=== PATIENT | male | born 1970 | race African-American/Black ===

== ENCOUNTER 2020-03-09 08:50 | Observation (INO) ==
[2020-03-09 09:11] LABS: Basophils # 0.1 10*3/uL (0.0-0.2); Basophils % 0.7 % (0.0-0.8); Eosinophils # 0.4 10*3/uL (0.0-0.87); Eosinophils % 3.2 % (0.00-10.9); Hematocrit 23.5 VOL% (42.0-52.0); Hemoglobin 7.4 GM/DL (14.0-18.0); Immature Granulocytes % 0.8 %; Immature Granulocytes Absolute 0.09 #; Lymphocytes # 2.2 10*3/uL (1.4-4.0); Lymphocytes % 19.4 % (21.2-54.2); Mean Corpuscular HGB Conc 31.5 GM/DL (32-36); Mean Corpuscular Volume 97.9 FL (87-102); Mean Platelet Volume 10.9 FL (9.6-12.0); Monocytes % 6.6 % (1.7-12.7); Neutrophils % 69.3 % (38.7-73.9); Platelet Count 408 T/CUMM (130-400); Red Cell Distribution Width 15.3 % (9.3-17.3); White Blood Count 11.4 T/CUMM (4-12)
[2020-03-09 09:22] LABS: PT Patient Result 10.7 SECS (9.8-11.9); Partial Thromboplastin Time 28.2 SECS (23.9-33.8)
[2020-03-09 09:39] LABS: Alanine Aminotransferase 13 U/L (16-61); Alkaline Phosphatase 81 U/L (45-117); Aspartate Amino Transferase 20 U/L (0-37); Bilirubin,Total < 0.39 MG/DL (0.2-1.0); Blood Urea Nitrogen 44 MG/DL (7-18); Calcium 8.2 MG/DL (8.5-10.1); Estimated Glom Filtration Rate 7 ML/MIN; Glucose 128 MG/DL (74-106); Osmolality,Calculated 285.8 MOS/KG (273-304); Total Protein 7.7 G/DL (6.4-8.3)
[2020-03-09] MEDS ORDERED: LIDOCAINE 1%/EPI INJ 20 ML VIAL ONE (10:31)
[2020-03-09] MEDS ORDERED: HEPARIN 5,000 UNIT/1 ML VIAL ONE (10:31)
[2020-03-09] MEDS ORDERED: THROMBIN TOPICAL (RECOMBINANT) 5,000 UNIT VIAL TOP ONE (10:31)
[2020-03-09] MEDS ORDERED: BUPIVACAINE MPF 0.25% 30 ML VIAL ONE (10:31)
[2020-03-09] MEDS ORDERED: fentaNYL 100 MCG/2 ML VIAL ONE ×2 (11:24→11:54)
[2020-03-09] MEDS ORDERED: LABETALOL 20 MG/4 ML SYRINGE IV ONE (11:25)
[2020-03-09] MEDS ORDERED: VANCOMYCIN 1,000 MG VIAL ONE (11:30)
[2020-03-09] MEDS ORDERED: LIDOCAINE 2% 5 ML VIAL ONE (11:54)
[2020-03-09] MEDS ORDERED: SODIUM CHLORIDE 0.9% 500 ML IV ONE (11:54)
[2020-03-09] MEDS ORDERED: SEVOFLURANE 1 UNIT/15 MINUTE INH ONE (11:54)
[2020-03-09] MEDS ORDERED: propofoL 200 MG/20 ML VIAL IV ONE (11:54)
[2020-03-09] MEDS ORDERED: ACETAMINOPHEN 325 MG TABLET PO PRN (12:17)
[2020-03-09] MEDS ORDERED: MORPHINE 4 MG/1 ML VIAL IV PRN (12:17)
[2020-03-09] MEDS ORDERED: GLUCAGON 1 MG VIAL IM PRN (12:17)
[2020-03-09] MEDS ORDERED: DEXTROSE 50% 25 GM/50 ML VIAL IV PRN (12:17)
[2020-03-09] MEDS ORDERED: ONDANSETRON 4 MG/2 ML VIAL IV PRN ×2 (12:17→12:24)
[2020-03-09] MEDS ORDERED: SODIUM CHLORIDE 0.9% 1,000 ML IV PRN ×2 (12:19→14:58)
[2020-03-09] MEDS ORDERED: HYDROmorphone 2 MG/1 ML VIAL ONE (12:20)
[2020-03-09] MEDS ORDERED: ONDANSETRON 4 MG/2 ML VIAL ONE (12:21)
[2020-03-09] MEDS: HYDROmorphone 2 MG/1 ML VIAL IV PRN ×2 (12:24→12:36)
[2020-03-09] MEDS ORDERED: hydrALAZINE 20 MG/1 ML VIAL IV ONE ×2 (12:25→14:04)
[2020-03-09] MEDS: INSULIN REGULAR 100 UNIT/ML SUBCUT SCH ×2 (17:00→21:19)
[2020-03-09] MEDS ORDERED: CALCIUM CARBONATE CHEW 500 MG TABLET PO PRN (18:52)
[2020-03-10] MEDS ORDERED: hydrALAZINE 20 MG/1 ML VIAL IV PRN (01:30)
[2020-03-10 05:47] LABS: Basophils # 0.1 10*3/uL (0.0-0.2); Basophils % 0.7 % (0.0-0.8); Eosinophils # 0.4 10*3/uL (0.0-0.87); Eosinophils % 2.6 % (0.00-10.9); Hematocrit 25.8 VOL% (42.0-52.0); Hemoglobin 8.6 GM/DL (14.0-18.0); Immature Granulocytes % 0.9 %; Immature Granulocytes Absolute 0.14 #; Lymphocytes % 12.8 % (21.2-54.2); Mean Corpuscular HGB Conc 33.3 GM/DL (32-36); Mean Corpuscular Volume 92.8 FL (87-102); Monocytes % 6.6 % (1.7-12.7); Neutrophils % 76.4 % (38.7-73.9); Platelet Count 347 T/CUMM (130-400); Red Blood Count 2.78 MC/CUMM (3.8-5.5); Red Cell Distribution Width 16.2 % (9.3-17.3); White Blood Count 15.4 T/CUMM (4-12)
[2020-03-10 06:09] LABS: Platelet Estimate Normal
[2020-03-10 06:10] LABS: Anisocytosis 2+; Macrocytosis 1+
[2020-03-10 06:11] LABS: Calcium 8.4 MG/DL (8.5-10.1)
[2020-03-10] MEDS ORDERED: VANCOMYCIN INJ 1,000 MG in SODIUM CHLORIDE 0.9% 250 ML IV ONE (10:30)
[2020-03-10 11:13] VITALS: BP 173/64
== END 2020-03-10 14:22 | disposition home or self-care (01) ==
LOC: EDUNIT# → EDBD → N.ED 08:50 → N.3E 08:50 → N.ED 08:50 → N.3E 11:08 → N.ED 11:08 → N.3E 13:53
PROVIDERS: ADMIT Internal Medicine; ATTEND Internal Medicine
PROC: VAVDCFI (2020-03-09 11:25)

== ENCOUNTER 2021-01-19 05:24 | Inpatient (IN) ==
[2021-01-12 11:48] LABS: Basophils # 0.1 10*3/uL (0.0-0.2); Eosinophils # 0.4 10*3/uL (0.0-0.87); Eosinophils % 5.5 % (0.00-10.9); Hematocrit 30.2 VOL% (42.0-52.0); Hemoglobin 9.3 GM/DL (14.0-18.0); Immature Granulocytes % 0.7 %; Immature Granulocytes Absolute 0.05 #; Lymphocytes # 1.1 10*3/uL (1.4-4.0); Lymphocytes % 15.3 % (21.2-54.2); Mean Corpuscular HGB Conc 30.8 GM/DL (32-36); Mean Corpuscular Volume 93.2 FL (87-102); Monocytes % 10.1 % (1.7-12.7); Neutrophils % 67.4 % (38.7-73.9); Platelet Count 217 T/CUMM (130-400); Red Blood Count 3.24 MC/CUMM (3.8-5.5); Red Cell Distribution Width 16.9 % (9.3-17.3)
[2021-01-12 12:13] LABS: Albumin 3.5 G/DL (3.4-5.0); Bilirubin,Total 0.5 MG/DL (0.20-1.00); Calcium 8.3 MG/DL (8.5-10.1); Osmolality,Calculated 283.5 MOS/KG (273-304); Potassium 4.2 MMOL/L (3.5-5.1); Total Protein 7.1 G/DL (6.4-8.2)
[2021-01-19] MEDS ORDERED: cefTRIAXone 1,000 MG in SODIUM CHLORIDE 0.9% 100 ML IV ONE (06:00)
[2021-01-19] MEDS ORDERED: MIDAZOLAM 2 MG/2 ML VIAL ONE (06:28)
[2021-01-19] MEDS ORDERED: fentaNYL 100 MCG/2 ML VIAL ONE ×2 (06:28→08:03)
[2021-01-19] MEDS ORDERED: PHENYLEPHRINE 10 MG/1 ML VIAL IV ONE (06:29)
[2021-01-19] MEDS ORDERED: SODIUM CHLORIDE 0.9% 250 ML IV SCH (06:30)
[2021-01-19 06:33] LABS: Hematocrit 29.2 VOL% (42.0-52.0); Hemoglobin 9.1 GM/DL (14.0-18.0)
[2021-01-19] MEDS ORDERED: ALVIMOPAN 12 MG CAPSULE PO STA (06:52)
[2021-01-19] MEDS ORDERED: DEXAMETHASONE 4 MG/1 ML VIAL ONE (06:53)
[2021-01-19] MEDS ORDERED: LIDOCAINE 1% 5 ML VIAL ONE (06:53)
[2021-01-19] MEDS ORDERED: BUPIVACAINE MPF 0.25% 30 ML VIAL ONE (06:53)
[2021-01-19] MEDS ORDERED: SODIUM CHLORIDE 0.9% 0 ML IV ONE ×2 (07:12→07:50)
[2021-01-19] MEDS ORDERED: SODIUM CHLORIDE 0.9% 100 ML IV ONE (07:12)
[2021-01-19] MEDS ORDERED: SEVOFLURANE 1 UNIT/15 MINUTE INH ONE ×4 (07:12)
[2021-01-19] MEDS ORDERED: LIDOCAINE 2% 5 ML VIAL ONE (07:12)
[2021-01-19] MEDS ORDERED: propofoL 200 MG/20 ML VIAL IV ONE (07:12)
[2021-01-19] MEDS ORDERED: ONDANSETRON 4 MG/2 ML VIAL ONE (07:13)
[2021-01-19] MEDS ORDERED: ROCURONIUM 50 MG/5 ML VIAL IV ONE ×3 (07:13→09:56)
[2021-01-19] MEDS ORDERED: LIDOCAINE 2% TOP JELLY 20 ML VIAL INTRAURETH ONE (07:33)
[2021-01-19] MEDS ORDERED: SODIUM CHLORIDE 0.9% IV ONE (09:00)
[2021-01-19] MEDS ORDERED: DESMOPRESSIN IV ONE (09:00)
[2021-01-19] MEDS ORDERED: ePHEDrine 50 MG/ML VIAL ONE (09:14)
[2021-01-19] MEDS ORDERED: hydrALAZINE 20 MG/1 ML VIAL ONE (09:59)
[2021-01-19] MEDS ORDERED: SODIUM CHLORIDE 0.9% 250 ML IV ONE ×2 (10:03)
[2021-01-19] MEDS ORDERED: ROPIVACAINE 0.5% 30 ML VIAL ONE (10:17)
[2021-01-19] MEDS ORDERED: GLYCOPYRROLATE 0.4 MG/2 ML VIAL ONE (10:31)
[2021-01-19] MEDS ORDERED: NEOSTIGMINE 10 MG/10 ML VIAL ONE (10:31)
[2021-01-19] MEDS ORDERED: LACTULOSE 20 GM/30 ML UDCUP PO PRN (10:36)
[2021-01-19] MEDS ORDERED: ONDANSETRON 4 MG/2 ML VIAL IV PRN ×2 (10:36→11:02)
[2021-01-19] MEDS ORDERED: PROMETHAZINE 25 MG/1 ML VIAL IM PRN (10:36)
[2021-01-19] MEDS ORDERED: diphenhydrAMINE 50 MG/1 ML VIAL IV PRN ×2 (10:42→11:02)
[2021-01-19] MEDS ORDERED: HYDROmorphone 2 MG/1 ML VIAL IV PRN (11:02)
[2021-01-19] MEDS ORDERED: PROMETHAZINE INJ 25 MG in SODIUM CHLORIDE 0.9% 50 ML IV PRN (11:02)
[2021-01-19] MEDS: MEPERIDINE 25 MG/1 ML VIAL IV PRN ×2 (11:10→11:30)
[2021-01-19] MEDS: ACETAMINOPHEN 325 MG TABLET PO SCH ×3 (11:13→23:12)
[2021-01-19] MEDS: cefTRIAXone 1,000 MG in SODIUM CHLORIDE 0.9% 100 ML IV SCH (11:19)
[2021-01-19] MEDS ORDERED: LABETALOL 20 MG/4 ML SYRINGE IV ONE (11:22)
[2021-01-19 11:53] LABS: Basophils # 0.1 10*3/uL (0.0-0.2); Basophils % 0.4 % (0.0-0.8); Eosinophils # 0.1 10*3/uL (0.0-0.87); Eosinophils % 0.9 % (0.00-10.9); Hemoglobin 9.9 GM/DL (14.0-18.0); Immature Granulocytes % 0.8 %; Immature Granulocytes Absolute 0.11 #; Lymphocytes # 0.8 10*3/uL (1.4-4.0); Lymphocytes % 5.7 % (21.2-54.2); Mean Corpuscular HGB Conc 30.9 GM/DL (32-36); Mean Corpuscular Volume 92.2 FL (87-102); Mean Platelet Volume 12.4 FL (9.6-12.0); Monocytes % 1.4 % (1.7-12.7); Neutrophils % 90.8 % (38.7-73.9); Platelet Count 225 T/CUMM (130-400); Red Blood Count 3.47 MC/CUMM (3.8-5.5); Red Cell Distribution Width 17.2 % (9.3-17.3); White Blood Count 13.6 T/CUMM (4-12)
[2021-01-19 12:12] LABS: Hypochromasia 1+; Lymphocytes 6 % (20-55); Microcytosis 1+; Platelet Estimate Adequate; Segmented Neutrophils 92 % (50-85); Total Cells Counted 100
[2021-01-19 12:56] LABS: Calcium 8.5 MG/DL (8.5-10.1); Potassium 4.6 MMOL/L (3.5-5.1)
[2021-01-19] MEDS: hydrALAZINE 20 MG/1 ML VIAL IV PRN ×2 (13:50→18:30)
[2021-01-19] MEDS: HYDROmorphone 2 MG/1 ML VIAL IV PRN ×3 (14:49→23:14)
[2021-01-19] MEDS: DOCUSATE SODIUM 100 MG CAPSULE PO SCH (20:44)
[2021-01-19] MEDS: ALVIMOPAN 12 MG CAPSULE PO SCH (20:44)
[2021-01-19] MEDS: METOPROLOL TARTRATE 100 MG TABLET PO SCH (20:44)
[2021-01-20] MEDS: hydrALAZINE 20 MG/1 ML VIAL IV PRN (00:36)
[2021-01-20 04:32] LABS: Basophils % 0.3 % (0.0-0.8); Eosinophils % 0.1 % (0.00-10.9); Immature Granulocytes % 0.5 %; Immature Granulocytes Absolute 0.05 #; Lymphocytes # 0.9 10*3/uL (1.4-4.0); Lymphocytes % 8.5 % (21.2-54.2); Mean Corpuscular HGB Conc 31.5 GM/DL (32-36); Mean Corpuscular Volume 91.5 FL (87-102); Mean Platelet Volume 12.4 FL (9.6-12.0); Monocytes % 8.1 % (1.7-12.7); Neutrophils % 82.5 % (38.7-73.9); Red Cell Distribution Width 17.2 % (9.3-17.3); White Blood Count 10.4 T/CUMM (4-12)
[2021-01-20 04:44] LABS: Hemoglobin 8.5 GM/DL (14.0-18.0); Platelet Count 170 T/CUMM (130-400); Red Blood Count 2.95 MC/CUMM (3.8-5.5)
[2021-01-20 04:56] LABS: Hypochromasia 2+; Microcytosis 1+; Platelet Estimate Adequate
[2021-01-20 04:58] LABS: Calcium 8.1 MG/DL (8.5-10.1); Osmolality,Calculated 284.1 MOS/KG (273-304); Potassium 4.9 MMOL/L (3.5-5.1)
[2021-01-20 05:06] LABS: Risk Ratio 2.39
[2021-01-20] MEDS: ACETAMINOPHEN 325 MG TABLET PO SCH ×4 (05:30→23:12)
[2021-01-20] MEDS: ALVIMOPAN 12 MG CAPSULE PO SCH ×2 (08:44→20:51)
[2021-01-20] MEDS: DOCUSATE SODIUM 100 MG CAPSULE PO SCH ×2 (08:44→20:51)
[2021-01-20] MEDS: amLODIPine 10 MG TABLET PO SCH (08:45)
[2021-01-20] MEDS: ISOSORBIDE DINITRATE 20 MG TABLET PO SCH (08:45)
[2021-01-20] MEDS: METOPROLOL TARTRATE 100 MG TABLET PO SCH ×2 (08:45→20:51)
[2021-01-20] MEDS ORDERED: HEPARIN 10,000 UNIT/10 ML VIAL IV SCH (10:00)
[2021-01-20] MEDS: oxyCODONE/ACETAMINOPHEN 5-325 MG TABLET PO PRN ×2 (11:38→20:50)
[2021-01-20] MEDS: cefTRIAXone 1,000 MG in SODIUM CHLORIDE 0.9% 100 ML IV SCH (16:09)
[2021-01-21] MEDS: ACETAMINOPHEN 325 MG TABLET PO SCH ×4 (04:10→23:37)
[2021-01-21] MEDS: hydrALAZINE 20 MG/1 ML VIAL IV PRN ×2 (04:10→12:29)
[2021-01-21 06:25] LABS: Basophils # 0.1 10*3/uL (0.0-0.2); Basophils % 0.5 % (0.0-0.8); Eosinophils # 0.3 10*3/uL (0.0-0.87); Eosinophils % 2.9 % (0.00-10.9); Hematocrit 26.9 VOL% (42.0-52.0); Hemoglobin 8.7 GM/DL (14.0-18.0); Immature Granulocytes % 0.9 %; Lymphocytes # 0.6 10*3/uL (1.4-4.0); Mean Corpuscular HGB Conc 32.3 GM/DL (32-36); Mean Corpuscular Volume 90.9 FL (87-102); Mean Platelet Volume 12.3 FL (9.6-12.0); Monocytes % 6.8 % (1.7-12.7); Neutrophils % 83.9 % (38.7-73.9); Platelet Count 168 T/CUMM (130-400); Red Blood Count 2.96 MC/CUMM (3.8-5.5); Red Cell Distribution Width 17.1 % (9.3-17.3); White Blood Count 11.1 T/CUMM (4-12)
[2021-01-21 06:39] LABS: Calcium 8.8 MG/DL (8.5-10.1); Osmolality,Calculated 275.2 MOS/KG (273-304); Potassium 4.1 MMOL/L (3.5-5.1)
[2021-01-21] MEDS: ALVIMOPAN 12 MG CAPSULE PO SCH ×2 (08:57→20:47)
[2021-01-21] MEDS: amLODIPine 10 MG TABLET PO SCH (08:57)
[2021-01-21] MEDS: METOPROLOL TARTRATE 100 MG TABLET PO SCH ×2 (08:57→20:47)
[2021-01-21] MEDS: DOCUSATE SODIUM 100 MG CAPSULE PO SCH ×2 (08:57→20:47)
[2021-01-21] MEDS: ISOSORBIDE DINITRATE 20 MG TABLET PO SCH (08:57)
[2021-01-21] MEDS: oxyCODONE/ACETAMINOPHEN 5-325 MG TABLET PO PRN ×2 (09:01→20:48)
[2021-01-21] MEDS: cefTRIAXone 1,000 MG in SODIUM CHLORIDE 0.9% 100 ML IV SCH (11:11)
[2021-01-21] MEDS ORDERED: hydrALAZINE 20 MG/1 ML VIAL IV PRN (11:43)
[2021-01-21] MEDS: minoxidiL 2.5 MG TABLET PO SCH (20:47)
[2021-01-22] MEDS: oxyCODONE/ACETAMINOPHEN 5-325 MG TABLET PO PRN (00:33)
[2021-01-22 06:05] LABS: Calcium 8.9 MG/DL (8.5-10.1); Osmolality,Calculated 279.2 MOS/KG (273-304); Potassium 3.8 MMOL/L (3.5-5.1)
[2021-01-22] MEDS: ACETAMINOPHEN 325 MG TABLET PO SCH ×2 (06:29→13:31)
[2021-01-22] MEDS ORDERED: BISACODYL 10 MG SUPP RECTAL ONE (09:00)
[2021-01-22] MEDS: minoxidiL 2.5 MG TABLET PO SCH (09:49)
[2021-01-22] MEDS: METOPROLOL TARTRATE 100 MG TABLET PO SCH (09:49)
[2021-01-22] MEDS: amLODIPine 10 MG TABLET PO SCH (09:49)
[2021-01-22] MEDS: DOCUSATE SODIUM 100 MG CAPSULE PO SCH (09:49)
[2021-01-22] MEDS ORDERED: TUBERCULIN SKIN TEST 0.1 ML SYRINGE INTRADERM ONE (13:00)
[2021-01-22] MEDS: ISOSORBIDE DINITRATE 20 MG TABLET PO SCH (13:31)
[2021-01-22] MEDS: ALVIMOPAN 12 MG CAPSULE PO SCH (13:31)
[2021-01-22] MEDS: cefTRIAXone 1,000 MG in SODIUM CHLORIDE 0.9% 100 ML IV SCH (13:57)
[2021-01-22 16:16] VITALS: BP 135/84
== END 2021-01-22 15:55 | disposition swing bed (61) | DRG 656 ==
LOC: N.OR 05:24 → N.SDSINP 05:26 → N.4E 12:22 → N.5E 14:18
PROVIDERS: ADMIT Surgery; ATTEND Surgery

== ENCOUNTER 2021-08-03 05:47 | Inpatient (IN) ==
[2021-07-29 11:13] LABS: Basophils # 0.1 10*3/uL (0.0-0.2); Basophils % 0.7 % (0.0-0.8); Eosinophils # 0.4 10*3/uL (0.0-0.87); Eosinophils % 4.4 % (0.00-10.9); Hematocrit 29.5 VOL% (42.0-52.0); Hemoglobin 8.8 GM/DL (14.0-18.0); Immature Granulocytes % 1.2 %; Lymphocytes # 1.3 10*3/uL (1.4-4.0); Lymphocytes % 15.3 % (21.2-54.2); Mean Corpuscular HGB Conc 29.8 GM/DL (32-36); Mean Corpuscular Volume 102.8 FL (87-102); Mean Platelet Volume 12.1 FL (9.6-12.0); Monocytes # 0.8 10*3/uL (0.11-0.8); Monocytes % 9.6 % (1.7-12.7); NRBC # 0.04 10*3/uL; Neutrophils % 68.8 % (38.7-73.9); Platelet Count 315 T/CUMM (130-400); Red Blood Count 2.87 MC/CUMM (3.8-5.5); Red Cell Distribution Width 21.2 % (9.3-17.3); White Blood Count 8.4 T/CUMM (4-12)
[2021-07-29 11:50] LABS: Alanine Aminotransferase 16 U/L (16-61); Albumin 3.6 G/DL (3.4-5.0); Alkaline Phosphatase 69 U/L (45-117); Aspartate Amino Transferase 16 U/L (0-37); Bilirubin,Total < 0.39 MG/DL (0.20-1.00); Blood Urea Nitrogen 34 MG/DL (7-18); Carbon Dioxide 34 MMOL/L (21-32); Chloride 97 MMOL/L (98-107); Estimated Glom Filtration Rate 10 ML/MIN; Glucose 215 MG/DL (74-106); Osmolality,Calculated 294.3 MOS/KG (273-304); Potassium 5.2 MMOL/L (3.5-5.1); Sodium 141 MMOL/L (136-145); Total Protein 7.2 G/DL (6.4-8.2)
[2021-08-03] MEDS ORDERED: MIDAZOLAM 2 MG/2 ML VIAL ONE (06:27)
[2021-08-03] MEDS ORDERED: propofoL 200 MG/20 ML VIAL IV ONE (06:27)
[2021-08-03] MEDS ORDERED: ROCURONIUM 50 MG/5 ML VIAL IV ONE ×2 (06:27→09:32)
[2021-08-03] MEDS ORDERED: LIDOCAINE 2% 5 ML VIAL ONE (06:27)
[2021-08-03] MEDS ORDERED: ONDANSETRON 4 MG/2 ML VIAL ONE (06:27)
[2021-08-03] MEDS ORDERED: DESFLURANE 1 UNIT/15 MINUTE INH ONE (06:27)
[2021-08-03] MEDS ORDERED: fentaNYL 100 MCG/2 ML VIAL ONE ×2 (06:27→08:07)
[2021-08-03] MEDS ORDERED: LIDOCAINE 1% 5 ML VIAL ONE (06:30)
[2021-08-03] MEDS ORDERED: ROPIVACAINE 0.5% 30 ML VIAL ONE ×2 (06:30→06:39)
[2021-08-03 06:33] LABS: Hematocrit 30.3 VOL% (42.0-52.0); Hemoglobin 9.2 GM/DL (14.0-18.0)
[2021-08-03] MEDS ORDERED: GABAPENTIN 400 MG CAPSULE PO ONE (06:36)
[2021-08-03] MEDS ORDERED: FAMOTIDINE 20 MG TABLET PO ONE (06:36)
[2021-08-03] MEDS ORDERED: ACETAMINOPHEN 500 MG TABLET PO ONE (06:36)
[2021-08-03] MEDS ORDERED: DIAZEPAM 5 MG TABLET PO ONE (06:36)
[2021-08-03] MEDS ORDERED: FAMOTIDINE 20 MG TABLET ONE (06:40)
[2021-08-03] MEDS ORDERED: DIAZEPAM 5 MG TABLET ONE (06:40)
[2021-08-03] MEDS ORDERED: ACETAMINOPHEN 500 MG TABLET ONE (06:40)
[2021-08-03] MEDS ORDERED: GABAPENTIN 400 MG CAPSULE ONE (06:40)
[2021-08-03] MEDS ORDERED: ALVIMOPAN 12 MG CAPSULE PO ONE (07:00)
[2021-08-03] MEDS ORDERED: cefTRIAXone 1,000 MG in SODIUM CHLORIDE 0.9% 100 ML IV ONE (07:00)
[2021-08-03] MEDS ORDERED: SODIUM CHLORIDE 0.9% 250 ML IV SCH (07:00)
[2021-08-03] MEDS ORDERED: DESMOPRESSIN INJ 20 MCG in SODIUM CHLORIDE 0.9% 50 ML IV ONE (08:30)
[2021-08-03] MEDS ORDERED: GLYCOPYRROLATE 0.4 MG/2 ML VIAL ONE (09:38)
[2021-08-03] MEDS ORDERED: NEOSTIGMINE 10 MG/10 ML VIAL ONE (09:38)
[2021-08-03] MEDS ORDERED: SEVOFLURANE 1 UNIT/15 MINUTE INH ONE (09:39)
[2021-08-03] MEDS ORDERED: SODIUM CHLORIDE 0.9% 250 ML IV ONE (09:59)
[2021-08-03] MEDS ORDERED: SIMETHICONE CHEW 125 MG TABLET PO PRN (10:34)
[2021-08-03] MEDS ORDERED: ONDANSETRON 4 MG/2 ML VIAL IV PRN (10:34)
[2021-08-03] MEDS ORDERED: diphenhydrAMINE 50 MG/1 ML VIAL IV PRN (10:34)
[2021-08-03] MEDS ORDERED: LACTULOSE 20 GM/30 ML UDCUP PO PRN (10:34)
[2021-08-03] MEDS ORDERED: PROMETHAZINE 25 MG/1 ML VIAL IM PRN (10:34)
[2021-08-03] MEDS ORDERED: HYDROmorphone 1 MG/1 ML SYRINGE IV PRN (10:34)
[2021-08-03 11:22] LABS: Basophils # 0.1 10*3/uL (0.0-0.2); Basophils % 0.6 % (0.0-0.8); Eosinophils # 0.4 10*3/uL (0.0-0.87); Eosinophils % 3.6 % (0.00-10.9); Hematocrit 32.8 VOL% (42.0-52.0); Hemoglobin 9.9 GM/DL (14.0-18.0); Immature Granulocytes % 1.4 %; Immature Granulocytes Absolute 0.13 #; Lymphocytes % 10.2 % (21.2-54.2); Mean Corpuscular HGB Conc 30.2 GM/DL (32-36); Mean Corpuscular Volume 103.1 FL (87-102); Mean Platelet Volume 11.5 FL (9.6-12.0); Monocytes # 0.9 10*3/uL (0.11-0.8); Monocytes % 8.9 % (1.7-12.7); Neutrophils % 75.3 % (38.7-73.9); Platelet Count 262 T/CUMM (130-400); Red Blood Count 3.18 MC/CUMM (3.8-5.5); Red Cell Distribution Width 21.8 % (9.3-17.3); White Blood Count 9.6 T/CUMM (4-12)
[2021-08-03] MEDS: cefTRIAXone 1,000 MG in SODIUM CHLORIDE 0.9% 100 ML IV SCH (12:31)
[2021-08-03] MEDS: ACETAMINOPHEN 325 MG TABLET PO SCH ×2 (12:37→16:08)
[2021-08-03 13:22] LABS: Calcium 8.5 MG/DL (8.5-10.1); Osmolality,Calculated 285.5 MOS/KG (273-304)
[2021-08-03 13:26] LABS: Potassium 6.9 MMOL/L (3.5-5.1)
[2021-08-03] MEDS: ISOSORBIDE MONONITRATE 60 MG TABLET PO SCH (14:06)
[2021-08-03] MEDS: amLODIPine 10 MG TABLET PO SCH (14:06)
[2021-08-03] MEDS: SODIUM ZIRCONIUM CYCLOSILICATE 10 GM PACK PO SCH ×2 (14:26→20:29)
[2021-08-03] MEDS: SEVELAMER CARBONATE 800 MG TABLET PO SCH (16:08)
[2021-08-03] MEDS: hydrALAZINE 20 MG/1 ML VIAL IV PRN (16:10)
[2021-08-03] MEDS: DOCUSATE SODIUM 100 MG CAPSULE PO SCH (21:07)
[2021-08-03] MEDS: ALVIMOPAN 12 MG CAPSULE PO SCH (21:09)
[2021-08-03] MEDS: FAMOTIDINE 20 MG TABLET PO SCH (21:09)
[2021-08-03] MEDS: METOPROLOL TARTRATE 100 MG TABLET PO SCH (21:10)
[2021-08-04] MEDS: ACETAMINOPHEN 325 MG TABLET PO SCH ×5 (01:21→23:38)
[2021-08-04] MEDS: oxyCODONE/ACETAMINOPHEN 5-325 MG TABLET PO PRN ×2 (01:23→06:17)
[2021-08-04] MEDS ORDERED: amLODIPine 10 MG TABLET PO SCH (09:00)
[2021-08-04] MEDS ORDERED: ISOSORBIDE MONONITRATE 60 MG TABLET PO SCH (09:00)
[2021-08-04 09:33] LABS: Basophils % 0.4 % (0.0-0.8); Eosinophils # 0.4 10*3/uL (0.0-0.87); Eosinophils % 5.2 % (0.00-10.9); Hematocrit 28.9 VOL% (42.0-52.0); Hemoglobin 8.9 GM/DL (14.0-18.0); Immature Granulocytes % 0.4 %; Immature Granulocytes Absolute 0.03 #; Lymphocytes # 0.5 10*3/uL (1.4-4.0); Lymphocytes % 6.4 % (21.2-54.2); Mean Corpuscular HGB Conc 30.8 GM/DL (32-36); Mean Corpuscular Volume 101.8 FL (87-102); Mean Platelet Volume 10.3 FL (9.6-12.0); Monocytes # 0.4 10*3/uL (0.11-0.8); Monocytes % 4.6 % (1.7-12.7); Platelet Count 190 T/CUMM (130-400); Red Blood Count 2.84 MC/CUMM (3.8-5.5); Red Cell Distribution Width 21.7 % (9.3-17.3); White Blood Count 8.5 T/CUMM (4-12)
[2021-08-04] MEDS: amLODIPine 10 MG TABLET PO SCH (09:45)
[2021-08-04] MEDS: ISOSORBIDE MONONITRATE 60 MG TABLET PO SCH (09:45)
[2021-08-04] MEDS: METOPROLOL TARTRATE 100 MG TABLET PO SCH ×2 (09:45→20:33)
[2021-08-04 09:47] LABS: Calcium 8.3 MG/DL (8.5-10.1); Osmolality,Calculated 283.7 MOS/KG (273-304); Potassium 5.4 MMOL/L (3.5-5.1)
[2021-08-04] MEDS ORDERED: HEPARIN 10,000 UNIT/10 ML VIAL IV PRN (10:11)
[2021-08-04] MEDS: FAMOTIDINE 20 MG TABLET PO SCH ×2 (10:20→20:33)
[2021-08-04] MEDS: DOCUSATE SODIUM 100 MG CAPSULE PO SCH ×2 (10:20→20:33)
[2021-08-04] MEDS: SODIUM ZIRCONIUM CYCLOSILICATE 10 GM PACK PO SCH ×3 (10:20→20:33)
[2021-08-04] MEDS: SEVELAMER CARBONATE 800 MG TABLET PO SCH ×3 (10:20→16:05)
[2021-08-04] MEDS: ALVIMOPAN 12 MG CAPSULE PO SCH ×2 (10:20→20:33)
[2021-08-04] MEDS ORDERED: EPOETIN ALFA-EPBX 3,000 UNIT/ML VIAL IV PRN (14:03)
[2021-08-04] MEDS: hydrALAZINE 20 MG/1 ML VIAL IV PRN ×2 (14:28→23:39)
[2021-08-04] MEDS: cefTRIAXone 1,000 MG in SODIUM CHLORIDE 0.9% 100 ML IV SCH ×2 (14:32→16:15)
[2021-08-04] MEDS ORDERED: TUBERCULIN SKIN TEST 0.1 ML SYRINGE INTRADERM ONE (15:00)
[2021-08-05] MEDS: ACETAMINOPHEN 325 MG TABLET PO SCH ×3 (04:20→16:53)
[2021-08-05] MEDS: amLODIPine 10 MG TABLET PO SCH (06:13)
[2021-08-05 08:06] LABS: Basophils % 0.3 % (0.0-0.8); Eosinophils # 0.6 10*3/uL (0.0-0.87); Eosinophils % 5.6 % (0.00-10.9); Hematocrit 30.5 VOL% (42.0-52.0); Hemoglobin 9.4 GM/DL (14.0-18.0); Immature Granulocytes % 0.6 %; Immature Granulocytes Absolute 0.06 #; Lymphocytes # 0.6 10*3/uL (1.4-4.0); Lymphocytes % 5.9 % (21.2-54.2); Mean Corpuscular HGB Conc 30.8 GM/DL (32-36); Mean Corpuscular Volume 100.3 FL (87-102); Mean Platelet Volume 11.7 FL (9.6-12.0); Monocytes # 0.7 10*3/uL (0.11-0.8); Monocytes % 6.8 % (1.7-12.7); Neutrophils % 80.8 % (38.7-73.9); Platelet Count 189 T/CUMM (130-400); Red Blood Count 3.04 MC/CUMM (3.8-5.5); Red Cell Distribution Width 20.9 % (9.3-17.3); White Blood Count 9.9 T/CUMM (4-12)
[2021-08-05 08:33] LABS: Calcium 8.9 MG/DL (8.5-10.1); Osmolality,Calculated 278.2 MOS/KG (273-304); Potassium 5.1 MMOL/L (3.5-5.1)
[2021-08-05] MEDS: METOPROLOL TARTRATE 100 MG TABLET PO SCH ×2 (08:42→21:16)
[2021-08-05] MEDS: ISOSORBIDE MONONITRATE 60 MG TABLET PO SCH (08:42)
[2021-08-05] MEDS: SEVELAMER CARBONATE 800 MG TABLET PO SCH ×3 (08:42→16:51)
[2021-08-05] MEDS: DOCUSATE SODIUM 100 MG CAPSULE PO SCH ×2 (08:42→21:16)
[2021-08-05] MEDS: FAMOTIDINE 20 MG TABLET PO SCH ×2 (08:42→21:17)
[2021-08-05] MEDS: ALVIMOPAN 12 MG CAPSULE PO SCH ×2 (08:44→21:16)
[2021-08-05] MEDS: oxyCODONE/ACETAMINOPHEN 5-325 MG TABLET PO PRN ×3 (08:46→21:17)
[2021-08-05] MEDS: SODIUM ZIRCONIUM CYCLOSILICATE 10 GM PACK PO SCH (09:17)
[2021-08-05] MEDS: cefTRIAXone 1,000 MG in SODIUM CHLORIDE 0.9% 100 ML IV SCH (11:38)
[2021-08-06] MEDS: ACETAMINOPHEN 325 MG TABLET PO SCH ×4 (00:25→21:29)
[2021-08-06] MEDS: hydrALAZINE 20 MG/1 ML VIAL IV PRN ×4 (00:27→22:42)
[2021-08-06] MEDS: HEPARIN 5,000 UNIT/1 ML VIAL IV PRN ×3 (00:28→15:25)
[2021-08-06] MEDS: oxyCODONE/ACETAMINOPHEN 5-325 MG TABLET PO PRN ×4 (04:15→21:28)
[2021-08-06] MEDS: ALVIMOPAN 12 MG CAPSULE PO SCH ×2 (08:36→21:24)
[2021-08-06] MEDS: DOCUSATE SODIUM 100 MG CAPSULE PO SCH ×2 (08:36→21:24)
[2021-08-06] MEDS: amLODIPine 10 MG TABLET PO SCH (08:37)
[2021-08-06] MEDS: FAMOTIDINE 20 MG TABLET PO SCH ×2 (08:39→21:24)
[2021-08-06] MEDS: METOPROLOL TARTRATE 100 MG TABLET PO SCH ×2 (08:45→21:23)
[2021-08-06] MEDS: SEVELAMER CARBONATE 800 MG TABLET PO SCH ×3 (09:44→17:36)
[2021-08-06] MEDS: ISOSORBIDE MONONITRATE 60 MG TABLET PO SCH (09:44)
[2021-08-06 10:47] LABS: Basophils % 0.2 % (0.0-0.8); Eosinophils # 0.5 10*3/uL (0.0-0.87); Eosinophils % 5.8 % (0.00-10.9); Hematocrit 27.6 VOL% (42.0-52.0); Hemoglobin 8.7 GM/DL (14.0-18.0); Immature Granulocytes % 0.7 %; Immature Granulocytes Absolute 0.06 #; Lymphocytes # 0.4 10*3/uL (1.4-4.0); Lymphocytes % 4.3 % (21.2-54.2); Mean Corpuscular HGB Conc 31.5 GM/DL (32-36); Mean Corpuscular Volume 98.2 FL (87-102); Mean Platelet Volume 11.6 FL (9.6-12.0); Monocytes # 0.5 10*3/uL (0.11-0.8); Monocytes % 5.7 % (1.7-12.7); Neutrophils % 83.3 % (38.7-73.9); Platelet Count 168 T/CUMM (130-400); Red Blood Count 2.81 MC/CUMM (3.8-5.5); Red Cell Distribution Width 20.2 % (9.3-17.3); White Blood Count 9.1 T/CUMM (4-12)
[2021-08-06 10:52] LABS: Calcium 8.3 MG/DL (8.5-10.1); Osmolality,Calculated 281.1 MOS/KG (273-304); Potassium 4.4 MMOL/L (3.5-5.1)
[2021-08-06] MEDS ORDERED: HEPARIN 10,000 UNIT/10 ML VIAL IV PRN (11:36)
[2021-08-06 11:54] LABS: Lymphocytes 4 % (20-55); Total Cells Counted 100
[2021-08-06 11:55] LABS: Platelet Estimate Adequate
[2021-08-06] MEDS: cefTRIAXone 1,000 MG in SODIUM CHLORIDE 0.9% 100 ML IV SCH (14:25)
[2021-08-07] MEDS: ACETAMINOPHEN 325 MG TABLET PO SCH ×4 (01:41→20:51)
[2021-08-07] MEDS: FAMOTIDINE 20 MG TABLET PO SCH ×2 (09:14→20:51)
[2021-08-07] MEDS: SEVELAMER CARBONATE 800 MG TABLET PO SCH ×3 (09:14→16:51)
[2021-08-07] MEDS: ALVIMOPAN 12 MG CAPSULE PO SCH ×2 (09:15→20:51)
[2021-08-07] MEDS: METOPROLOL TARTRATE 100 MG TABLET PO SCH ×2 (09:15→20:52)
[2021-08-07] MEDS: amLODIPine 10 MG TABLET PO SCH (09:15)
[2021-08-07] MEDS: ISOSORBIDE MONONITRATE 60 MG TABLET PO SCH (09:15)
[2021-08-07] MEDS: DOCUSATE SODIUM 100 MG CAPSULE PO SCH ×2 (09:17→20:51)
[2021-08-07] MEDS: oxyCODONE/ACETAMINOPHEN 5-325 MG TABLET PO PRN (09:19)
[2021-08-07] MEDS ORDERED: hydroCHLOROthiazide 12.5 MG CAPSULE PO SCH (13:00)
[2021-08-07] MEDS: LOSARTAN 50 MG TABLET PO SCH ×2 (13:40→20:52)
[2021-08-07] MEDS: hydroCHLOROthiazide 12.5 MG CAPSULE PO SCH (13:40)
[2021-08-07] MEDS: cefTRIAXone 1,000 MG in SODIUM CHLORIDE 0.9% 100 ML IV SCH (13:41)
[2021-08-07] MEDS: PRAZOSIN 1 MG CAPSULE PO SCH (20:52)
[2021-08-08] MEDS: ACETAMINOPHEN 325 MG TABLET PO SCH ×4 (03:10→21:27)
[2021-08-08] MEDS: hydrALAZINE 20 MG/1 ML VIAL IV PRN ×2 (03:28→17:12)
[2021-08-08] MEDS: METOPROLOL TARTRATE 100 MG TABLET PO SCH ×2 (09:39→21:31)
[2021-08-08] MEDS: SEVELAMER CARBONATE 800 MG TABLET PO SCH ×3 (09:39→17:12)
[2021-08-08] MEDS: ALVIMOPAN 12 MG CAPSULE PO SCH ×2 (09:39→21:27)
[2021-08-08] MEDS: hydroCHLOROthiazide 12.5 MG CAPSULE PO SCH (09:40)
[2021-08-08] MEDS: PRAZOSIN 1 MG CAPSULE PO SCH ×2 (09:40→21:27)
[2021-08-08] MEDS: DOCUSATE SODIUM 100 MG CAPSULE PO SCH ×2 (09:40→21:27)
[2021-08-08] MEDS: ISOSORBIDE MONONITRATE 60 MG TABLET PO SCH (09:40)
[2021-08-08] MEDS: FAMOTIDINE 20 MG TABLET PO SCH ×2 (09:40→21:31)
[2021-08-08] MEDS: LOSARTAN 50 MG TABLET PO SCH ×2 (09:52→21:31)
[2021-08-08] MEDS ORDERED: HYDROmorphone 1 MG/1 ML SYRINGE IV PRN (14:28)
[2021-08-08] MEDS ORDERED: HYDROmorphone 1 MG/1 ML SYRINGE IV ONE (14:28)
[2021-08-08] MEDS: cefTRIAXone 1,000 MG in SODIUM CHLORIDE 0.9% 100 ML IV SCH (14:29)
[2021-08-09] MEDS: ACETAMINOPHEN 325 MG TABLET PO SCH ×3 (01:12→14:34)
[2021-08-09 08:05] VITALS: BP 174/102
[2021-08-09] MEDS: METOPROLOL TARTRATE 100 MG TABLET PO SCH (08:06)
[2021-08-09] MEDS: hydroCHLOROthiazide 12.5 MG CAPSULE PO SCH (08:06)
[2021-08-09] MEDS: ALVIMOPAN 12 MG CAPSULE PO SCH (08:06)
[2021-08-09] MEDS: DOCUSATE SODIUM 100 MG CAPSULE PO SCH (08:06)
[2021-08-09] MEDS: SEVELAMER CARBONATE 800 MG TABLET PO SCH ×2 (08:06→14:34)
[2021-08-09] MEDS: FAMOTIDINE 20 MG TABLET PO SCH (08:07)
[2021-08-09] MEDS: ISOSORBIDE MONONITRATE 60 MG TABLET PO SCH (08:07)
[2021-08-09] MEDS: PRAZOSIN 1 MG CAPSULE PO SCH (08:07)
[2021-08-09] MEDS: LOSARTAN 50 MG TABLET PO SCH (08:07)
[2021-08-09] MEDS: cefTRIAXone 1,000 MG in SODIUM CHLORIDE 0.9% 100 ML IV SCH (14:45)
== END 2021-08-09 15:59 | DRG 660 ==
LOC: N.OR 05:47 → N.SDSINP 05:49 → SUATTDRO 10:34 → N.3E 11:55
PROVIDERS: ADMIT Surgery; ATTEND Internal Medicine

== ENCOUNTER 2021-12-30 12:24 | Inpatient (IN) ==
[2021-12-30 16:27] LABS: Basophils # 0.1 10*3/uL (0.0-0.2); Basophils % 0.8 % (0.0-0.8); Eosinophils # 0.3 10*3/uL (0.0-0.87); Eosinophils % 4.8 % (0.00-10.9); Hematocrit 24.9 VOL% (42.0-52.0); Hemoglobin 7.6 GM/DL (14.0-18.0); Immature Granulocytes % 0.6 %; Immature Granulocytes Absolute 0.04 #; Lymphocytes # 1.2 10*3/uL (1.4-4.0); Lymphocytes % 19.1 % (21.2-54.2); Mean Corpuscular HGB Conc 30.5 GM/DL (32-36); Mean Corpuscular Volume 102.5 FL (87-102); Mean Platelet Volume 11.9 FL (9.6-12.0); Monocytes % 16.7 % (1.7-12.7); Platelet Count 189 T/CUMM (130-400); Red Blood Count 2.43 MC/CUMM (3.8-5.5); White Blood Count 6.2 T/CUMM (4-12)
[2021-12-30 16:37] LABS: INR 0.9; PT Patient Result 10.4 SECS (10.1-12.1); Partial Thromboplastin Time 42.1 SECS (23.7-32.9)
[2021-12-30 16:38] LABS: Albumin 2.9 G/DL (3.4-5.0); Bilirubin,Total 0.4 MG/DL (0.20-1.00); Calcium 8.1 MG/DL (8.5-10.1); Osmolality,Calculated 280.8 MOS/KG (273-304); Potassium 5.6 MMOL/L (3.5-5.1); Total Protein 7.3 G/DL (6.4-8.2)
[2021-12-30 16:55] LABS: Eosinophils 7 % (0-10); Lymphocytes 11 % (20-55); Total Cells Counted 100
[2021-12-30 16:56] LABS: Anisocytosis 1+; Microcytosis 1+
[2021-12-30 16:57] LABS: Macrocytosis 1+; Platelet Estimate Adequate
[2021-12-30] MEDS ORDERED: ONDANSETRON 4 MG/2 ML VIAL IV PRN (17:40)
[2021-12-30] MEDS ORDERED: DEXTROSE 10% 250 ML BAG IV PRN (17:40)
[2021-12-30] MEDS ORDERED: GLUCAGON 1 MG VIAL IM PRN (17:40)
[2021-12-30] MEDS ORDERED: SODIUM CHLORIDE 0.9% 1,000 ML IV PRN (17:43)
[2021-12-30] MEDS ORDERED: hydrALAZINE 20 MG/1 ML VIAL IV PRN (19:30)
[2021-12-30 19:47] LABS: % Iron Saturation 80.1 % (18-50)
[2021-12-30 20:19] LABS: Folate 5.84 NG/ML (5.38-24.0)
[2021-12-31] MEDS: ACETAMINOPHEN 325 MG TABLET PO PRN ×2 (01:27→14:29)
[2021-12-31] MEDS: LOSARTAN 50 MG TABLET PO SCH ×2 (08:27→20:42)
[2021-12-31] MEDS: SEVELAMER CARBONATE 800 MG TABLET PO SCH ×3 (08:28→16:54)
[2021-12-31] MEDS: ISOSORBIDE MONONITRATE 60 MG TABLET PO SCH (08:28)
[2021-12-31] MEDS: amLODIPine 10 MG TABLET PO SCH (08:28)
[2021-12-31] MEDS: CHOLECALCIFEROL 1,000 UNIT TABLET PO SCH (08:28)
[2021-12-31] MEDS: PRAZOSIN 1 MG CAPSULE PO SCH ×2 (08:36→20:42)
[2021-12-31] MEDS: METOPROLOL TARTRATE 100 MG TABLET PO SCH ×2 (08:37→20:42)
[2021-12-31] MEDS ORDERED: GENTAMICIN INJ 200 MG in SODIUM CHLORIDE 0.9% 100 ML IV ONE (08:52)
[2021-12-31] MEDS ORDERED: cefTRIAXone 2,000 MG in SODIUM CHLORIDE 0.9% 100 ML IV ONE (08:58)
[2021-12-31] MEDS: HEPARIN 5,000 UNIT/1 ML VIAL SUBCUT SCH ×2 (11:40→20:43)
[2022-01-01] MEDS: PRAZOSIN 1 MG CAPSULE PO SCH ×2 (08:38→20:21)
[2022-01-01] MEDS: ISOSORBIDE MONONITRATE 60 MG TABLET PO SCH (08:38)
[2022-01-01] MEDS: amLODIPine 10 MG TABLET PO SCH (08:38)
[2022-01-01] MEDS: CHOLECALCIFEROL 1,000 UNIT TABLET PO SCH (08:38)
[2022-01-01] MEDS: LOSARTAN 50 MG TABLET PO SCH ×2 (08:38→20:22)
[2022-01-01] MEDS: PANTOPRAZOLE 40 MG TABLET PO SCH (08:38)
[2022-01-01] MEDS: SEVELAMER CARBONATE 800 MG TABLET PO SCH ×3 (08:38→16:22)
[2022-01-01] MEDS: HEPARIN 5,000 UNIT/1 ML VIAL SUBCUT SCH ×2 (08:39→21:15)
[2022-01-01] MEDS: METOPROLOL TARTRATE 100 MG TABLET PO SCH ×2 (08:39→20:22)
[2022-01-01] MEDS: cloNIDine 0.1 MG TABLET PO SCH (20:21)
[2022-01-02 07:27] LABS: Basophils # 0.1 10*3/uL (0.0-0.2); Basophils % 0.7 % (0.0-0.8); Eosinophils # 0.4 10*3/uL (0.0-0.87); Eosinophils % 4.6 % (0.00-10.9); Hematocrit 29.3 VOL% (42.0-52.0); Hemoglobin 9.3 GM/DL (14.0-18.0); Immature Granulocytes % 1.3 %; Immature Granulocytes Absolute 0.11 #; Lymphocytes # 1.3 10*3/uL (1.4-4.0); Lymphocytes % 14.6 % (21.2-54.2); Mean Corpuscular HGB Conc 31.7 GM/DL (32-36); Mean Corpuscular Volume 97.7 FL (87-102); Mean Platelet Volume 11.5 FL (9.6-12.0); Monocytes # 0.8 10*3/uL (0.11-0.8); Monocytes % 9.6 % (1.7-12.7); Neutrophils % 69.2 % (38.7-73.9); Platelet Count 195 T/CUMM (130-400); Red Cell Distribution Width 16.8 % (9.3-17.3); White Blood Count 8.7 T/CUMM (4-12)
[2022-01-02 07:41] LABS: Calcium 8.8 MG/DL (8.5-10.1); Osmolality,Calculated 284.1 MOS/KG (273-304); Potassium 5.3 MMOL/L (3.5-5.1)
[2022-01-02] MEDS: METOPROLOL TARTRATE 100 MG TABLET PO SCH (10:01)
[2022-01-02] MEDS: LOSARTAN 50 MG TABLET PO SCH ×2 (10:01→20:50)
[2022-01-02] MEDS: CHOLECALCIFEROL 1,000 UNIT TABLET PO SCH (10:01)
[2022-01-02] MEDS: cloNIDine 0.1 MG TABLET PO SCH ×2 (10:02→20:50)
[2022-01-02] MEDS: PANTOPRAZOLE 40 MG TABLET PO SCH (10:02)
[2022-01-02] MEDS: SEVELAMER CARBONATE 800 MG TABLET PO SCH ×3 (10:02→16:56)
[2022-01-02] MEDS: ISOSORBIDE MONONITRATE 60 MG TABLET PO SCH (10:02)
[2022-01-02] MEDS: PRAZOSIN 1 MG CAPSULE PO SCH ×2 (10:02→20:50)
[2022-01-02] MEDS: HEPARIN 5,000 UNIT/1 ML VIAL SUBCUT SCH ×2 (10:03→20:50)
[2022-01-03] MEDS: METOPROLOL TARTRATE 100 MG TABLET PO SCH ×2 (01:33→10:23)
[2022-01-03 09:09] LABS: Basophils # 0.1 10*3/uL (0.0-0.2); Basophils % 0.9 % (0.0-0.8); Eosinophils # 0.4 10*3/uL (0.0-0.87); Eosinophils % 4.6 % (0.00-10.9); Hemoglobin 9.4 GM/DL (14.0-18.0); Immature Granulocytes % 1.4 %; Immature Granulocytes Absolute 0.11 #; Lymphocytes # 1.5 10*3/uL (1.4-4.0); Lymphocytes % 19.3 % (21.2-54.2); Mean Corpuscular HGB Conc 31.3 GM/DL (32-36); Mean Corpuscular Volume 99.3 FL (87-102); Mean Platelet Volume 11.5 FL (9.6-12.0); Monocytes # 0.6 10*3/uL (0.11-0.8); Monocytes % 7.8 % (1.7-12.7); Platelet Count 220 T/CUMM (130-400); Red Blood Count 3.02 MC/CUMM (3.8-5.5); Red Cell Distribution Width 16.4 % (9.3-17.3); White Blood Count 7.6 T/CUMM (4-12)
[2022-01-03 09:35] LABS: Calcium 9.1 MG/DL (8.5-10.1); Osmolality,Calculated 285.4 MOS/KG (273-304); Potassium 5.2 MMOL/L (3.5-5.1)
[2022-01-03] MEDS: cloNIDine 0.1 MG TABLET PO SCH (10:23)
[2022-01-03] MEDS: SEVELAMER CARBONATE 800 MG TABLET PO SCH ×3 (10:23→17:47)
[2022-01-03] MEDS: ISOSORBIDE MONONITRATE 60 MG TABLET PO SCH (10:23)
[2022-01-03] MEDS: PRAZOSIN 1 MG CAPSULE PO SCH (10:23)
[2022-01-03] MEDS: LOSARTAN 50 MG TABLET PO SCH (10:23)
[2022-01-03] MEDS: PANTOPRAZOLE 40 MG TABLET PO SCH (10:23)
[2022-01-03] MEDS: CHOLECALCIFEROL 1,000 UNIT TABLET PO SCH (10:24)
[2022-01-03] MEDS: HEPARIN 5,000 UNIT/1 ML VIAL SUBCUT SCH (10:24)
[2022-01-03 12:29] VITALS: BP 161/88
[2022-01-03] MEDS ORDERED: cefTRIAXone 2,000 MG in SODIUM CHLORIDE 0.9% 100 ML IV SCH (17:00)
[2022-01-03] MEDS ORDERED: GENTAMICIN INJ 200 MG in SODIUM CHLORIDE 0.9% 100 ML IV SCH (17:00)
== END 2022-01-03 19:50 | disposition home or self-care (01) | DRG 314 ==
LOC: N.ED 12:24 → N.EDINP 12:24 → N.2W 21:35 → SUATTDRO 12-31 09:23 → N.5E 12-31 16:29
PROVIDERS: ADMIT Emergency Medicine; ATTEND Internal Medicine

== ENCOUNTER 2022-01-24 15:08 | Inpatient (IN) ==
[2022-01-24] MEDS ORDERED: ONDANSETRON 4 MG/2 ML VIAL IV ONE (15:27)
[2022-01-24] MEDS ORDERED: ACETAMINOPHEN 325 MG TABLET PO ONE (15:27)
[2022-01-24 16:13] LABS: Basophils % 0.4 % (0.0-0.8); Eosinophils # 0.2 10*3/uL (0.0-0.87); Eosinophils % 1.7 % (0.00-10.9); Hematocrit 32.5 VOL% (42.0-52.0); Hemoglobin 10.3 GM/DL (14.0-18.0); Immature Granulocytes % 1.3 %; Immature Granulocytes Absolute 0.12 #; Lymphocytes # 0.4 10*3/uL (1.4-4.0); Lymphocytes % 3.8 % (21.2-54.2); Mean Corpuscular HGB Conc 31.7 GM/DL (32-36); Mean Corpuscular Volume 101.6 FL (87-102); Mean Platelet Volume 11.5 FL (9.6-12.0); Monocytes # 0.1 10*3/uL (0.11-0.8); Monocytes % 0.7 % (1.7-12.7); NRBC # 0.06 10*3/uL; Neutrophils % 92.1 % (38.7-73.9); Platelet Count 259 T/CUMM (130-400); White Blood Count 9.5 T/CUMM (4-12)
[2022-01-24 16:35] LABS: PT Patient Result 11.1 SECS (10.1-12.1)
[2022-01-24] MEDS ORDERED: VANCOMYCIN INJ 1,000 MG in SODIUM CHLORIDE 0.9% 250 ML IV STA (16:38)
[2022-01-24] MEDS ORDERED: PIPERACILLIN/TAZOBACTAM 3,375 MG in SODIUM CHLORIDE 0.9% 100 ML IV STA (16:38)
[2022-01-24 16:40] LABS: Albumin 3.5 G/DL (3.4-5.0); Bilirubin,Total 0.4 MG/DL (0.20-1.00); Calcium 9.1 MG/DL (8.5-10.1); Potassium 4.3 MMOL/L (3.5-5.1); Total Protein 7.9 G/DL (6.4-8.2)
[2022-01-24] MEDS ORDERED: hydrALAZINE 20 MG/1 ML VIAL IV STA (16:46)
[2022-01-24] MEDS ORDERED: ALUMINUM/MAGNES/SIMETH MAX STR 30 ML UDCUP PO PRN (17:22)
[2022-01-24] MEDS ORDERED: ACETAMINOPHEN 325 MG TABLET PO PRN (17:22)
[2022-01-24 17:57] LABS: Eosinophils 1 % (0-10); Hypochromia 2+; Lymphocytes 9 % (20-55); Total Cells Counted 100
[2022-01-24 17:58] LABS: Anisocytosis 1+; Platelet Estimate Normal; Polychromasia Few
[2022-01-24] MEDS ORDERED: cefTRIAXone 1,000 MG in SODIUM CHLORIDE 0.9% 100 ML IV SCH (18:05)
[2022-01-24] MEDS ORDERED: GENTAMICIN INJ 240 MG in SODIUM CHLORIDE 0.9% 100 ML IV ONE (20:00)
[2022-01-24] MEDS: HEPARIN 5,000 UNIT/1 ML VIAL SUBCUT SCH (21:03)
[2022-01-25] MEDS: SEVELAMER CARBONATE 800 MG TABLET PO SCH ×3 (08:03→16:53)
[2022-01-25] MEDS: amLODIPine 10 MG TABLET PO SCH (08:03)
[2022-01-25] MEDS: ISOSORBIDE MONONITRATE 60 MG TABLET PO SCH (08:04)
[2022-01-25] MEDS: DILTIAZEM CD 240 MG CAPSULE PO SCH (08:04)
[2022-01-25] MEDS: HEPARIN 5,000 UNIT/1 ML VIAL SUBCUT SCH ×2 (08:04→21:23)
[2022-01-25] MEDS: hydrALAZINE 20 MG/1 ML VIAL IV PRN (09:41)
[2022-01-25] MEDS: cefTRIAXone 1,000 MG in SODIUM CHLORIDE 0.9% 100 ML IV SCH (14:06)
[2022-01-26] MEDS: DILTIAZEM CD 240 MG CAPSULE PO SCH (09:17)
[2022-01-26] MEDS: ISOSORBIDE MONONITRATE 60 MG TABLET PO SCH (09:17)
[2022-01-26] MEDS: SEVELAMER CARBONATE 800 MG TABLET PO SCH ×3 (09:17→17:15)
[2022-01-26] MEDS: cefTRIAXone 1,000 MG in SODIUM CHLORIDE 0.9% 100 ML IV SCH (09:18)
[2022-01-26] MEDS: amLODIPine 10 MG TABLET PO SCH (09:18)
[2022-01-26] MEDS: HEPARIN 5,000 UNIT/1 ML VIAL SUBCUT SCH ×2 (09:18→20:50)
[2022-01-26] MEDS ORDERED: GENTAMICIN INJ 160 MG in SODIUM CHLORIDE 0.9% 100 ML IV PRN (09:45)
[2022-01-26 11:01] LABS: Basophils % 0.6 % (0.0-0.8); Eosinophils # 0.3 10*3/uL (0.0-0.87); Eosinophils % 4.3 % (0.00-10.9); Hemoglobin 8.6 GM/DL (14.0-18.0); Immature Granulocytes % 1.5 %; Immature Granulocytes Absolute 0.11 #; Lymphocytes # 0.9 10*3/uL (1.4-4.0); Lymphocytes % 11.8 % (21.2-54.2); Mean Corpuscular HGB Conc 30.7 GM/DL (32-36); Mean Corpuscular Volume 104.1 FL (87-102); Mean Platelet Volume 11.6 FL (9.6-12.0); Monocytes # 0.3 10*3/uL (0.11-0.8); Monocytes % 4.6 % (1.7-12.7); Neutrophils % 77.2 % (38.7-73.9); Platelet Count 224 T/CUMM (130-400); Red Blood Count 2.69 MC/CUMM (3.8-5.5); Red Cell Distribution Width 17.3 % (9.3-17.3); White Blood Count 7.2 T/CUMM (4-12)
[2022-01-26 11:45] LABS: Alanine Aminotransferase 12 U/L (16-61); Albumin 3.2 G/DL (3.4-5.0); Alkaline Phosphatase 61 U/L (45-117); Aspartate Amino Transferase 13 U/L (0-37); Bilirubin,Total < 0.39 MG/DL (0.20-1.00); Blood Urea Nitrogen 39 MG/DL (7-18); Calcium 8.5 MG/DL (8.5-10.1); Carbon Dioxide 30 MMOL/L (21-32); Chloride 96 MMOL/L (98-107); Glucose 130 MG/DL (74-106); Osmolality,Calculated 280.1 MOS/KG (273-304); Potassium 4.4 MMOL/L (3.5-5.1); Sodium 135 MMOL/L (136-145); Total Protein 7.2 G/DL (6.4-8.2)
[2022-01-26] MEDS ORDERED: HEPARIN 10,000 UNIT/10 ML VIAL IV SCH (12:45)
[2022-01-26] MEDS ORDERED: VANCOMYCIN INJ 1,000 MG in SODIUM CHLORIDE 0.9% 250 ML IV ONE ×2 (13:45→15:00)
[2022-01-26] MEDS ORDERED: GENTAMICIN INJ 160 MG in SODIUM CHLORIDE 0.9% 100 ML IV ONE (17:00)
[2022-01-26] MEDS ORDERED: GENTAMICIN INJ 120 MG/100 ML PREMIX IV PRN (18:00)
[2022-01-27] MEDS: hydrALAZINE 20 MG/1 ML VIAL IV PRN ×2 (05:05→08:34)
[2022-01-27] MEDS ORDERED: LIDOCAINE 2%/EPI 20 ML VIAL ONE (07:27)
[2022-01-27] MEDS ORDERED: LIDOCAINE 2% 5 ML VIAL ONE (07:28)
[2022-01-27] MEDS ORDERED: propofoL 200 MG/20 ML VIAL IV ONE (07:28)
[2022-01-27] MEDS ORDERED: MIDAZOLAM 2 MG/2 ML VIAL ONE (07:29)
[2022-01-27] MEDS ORDERED: fentaNYL 100 MCG/2 ML VIAL ONE (07:29)
[2022-01-27] MEDS ORDERED: SODIUM CHLORIDE 0.9% 250 ML IV SCH (08:30)
[2022-01-27] MEDS: ISOSORBIDE MONONITRATE 60 MG TABLET PO SCH (10:13)
[2022-01-27] MEDS: amLODIPine 10 MG TABLET PO SCH (10:13)
[2022-01-27] MEDS: cefTRIAXone 1,000 MG in SODIUM CHLORIDE 0.9% 100 ML IV SCH ×2 (10:13→19:03)
[2022-01-27] MEDS: DILTIAZEM CD 240 MG CAPSULE PO SCH (10:13)
[2022-01-27] MEDS: SEVELAMER CARBONATE 800 MG TABLET PO SCH ×3 (10:14→17:47)
[2022-01-27] MEDS: HEPARIN 5,000 UNIT/1 ML VIAL SUBCUT SCH ×2 (10:14→21:20)
[2022-01-27] MEDS: ONDANSETRON ODT 4 MG TABLET PO PRN (14:47)
[2022-01-28] MEDS: hydrALAZINE 20 MG/1 ML VIAL IV PRN (05:04)
[2022-01-28] MEDS: ONDANSETRON ODT 4 MG TABLET PO PRN (06:44)
[2022-01-28] MEDS: DILTIAZEM CD 240 MG CAPSULE PO SCH (08:31)
[2022-01-28] MEDS: amLODIPine 10 MG TABLET PO SCH (08:31)
[2022-01-28] MEDS: ISOSORBIDE MONONITRATE 60 MG TABLET PO SCH (08:31)
[2022-01-28] MEDS: SEVELAMER CARBONATE 800 MG TABLET PO SCH ×3 (08:31→17:00)
[2022-01-28] MEDS: HEPARIN 5,000 UNIT/1 ML VIAL SUBCUT SCH ×2 (08:43→20:14)
[2022-01-29] MEDS: hydrALAZINE 20 MG/1 ML VIAL IV PRN ×2 (00:28→07:30)
[2022-01-29] MEDS ORDERED: BUPIVACAINE MPF 0.25% 10 ML VIAL ONE (06:26)
[2022-01-29] MEDS ORDERED: LIDOCAINE 2%/EPI 20 ML VIAL ONE (06:27)
[2022-01-29] MEDS ORDERED: MIDAZOLAM 2 MG/2 ML VIAL ONE ×2 (06:34→09:52)
[2022-01-29] MEDS ORDERED: KETAMINE 500 MG/10 ML VIAL ONE (06:34)
[2022-01-29] MEDS: SEVELAMER CARBONATE 800 MG TABLET PO SCH ×3 (07:08→17:03)
[2022-01-29] MEDS ORDERED: fentaNYL 100 MCG/2 ML VIAL ONE (09:49)
[2022-01-29] MEDS ORDERED: LIDOCAINE 2% 5 ML VIAL ONE (09:49)
[2022-01-29] MEDS ORDERED: propofoL 200 MG/20 ML VIAL IV ONE (09:49)
[2022-01-29] MEDS ORDERED: hydrALAZINE 20 MG/1 ML VIAL ONE (09:56)
[2022-01-29] MEDS ORDERED: SODIUM CHLORIDE 0.9% 250 ML IV ONE (10:26)
[2022-01-29 12:02] LABS: Basophils # 0.1 10*3/uL (0.0-0.2); Basophils % 0.8 % (0.0-0.8); Eosinophils # 0.4 10*3/uL (0.0-0.87); Eosinophils % 3.7 % (0.00-10.9); Hematocrit 30.8 VOL% (42.0-52.0); Hemoglobin 9.7 GM/DL (14.0-18.0); Immature Granulocytes % 2.4 %; Immature Granulocytes Absolute 0.23 #; Lymphocytes # 1.1 10*3/uL (1.4-4.0); Lymphocytes % 11.8 % (21.2-54.2); Mean Corpuscular HGB Conc 31.5 GM/DL (32-36); Mean Platelet Volume 10.8 FL (9.6-12.0); Monocytes # 0.4 10*3/uL (0.11-0.8); Monocytes % 4.2 % (1.7-12.7); Neutrophils % 77.1 % (38.7-73.9); Platelet Count 208 T/CUMM (130-400); Red Blood Count 2.99 MC/CUMM (3.8-5.5); Red Cell Distribution Width 17.3 % (9.3-17.3); White Blood Count 9.4 T/CUMM (4-12)
[2022-01-29 12:40] LABS: Alanine Aminotransferase < 9 U/L (16-61); Albumin 3.3 G/DL (3.4-5.0); Alkaline Phosphatase 72 U/L (45-117); Aspartate Amino Transferase 11 U/L (0-37); Blood Urea Nitrogen 43 MG/DL (7-18); Calcium 9.1 MG/DL (8.5-10.1); Carbon Dioxide 24 MMOL/L (21-32); Chloride 100 MMOL/L (98-107); Glucose 96 MG/DL (74-106); Osmolality,Calculated 278.2 MOS/KG (273-304); Sodium 134 MMOL/L (136-145); Total Protein 7.6 G/DL (6.4-8.2)
[2022-01-29] MEDS: HEPARIN 5,000 UNIT/1 ML VIAL SUBCUT SCH ×2 (14:37→20:57)
[2022-01-29] MEDS: ISOSORBIDE MONONITRATE 60 MG TABLET PO SCH (14:54)
[2022-01-29] MEDS: DILTIAZEM CD 240 MG CAPSULE PO SCH (14:54)
[2022-01-29] MEDS: amLODIPine 10 MG TABLET PO SCH (14:55)
[2022-01-29] MEDS ORDERED: LEVOFLOXACIN INJ 750 MG/150 ML PREMIX IV ONE (17:00)
[2022-01-30 08:17] VITALS: BP 146/68
[2022-01-30] MEDS: amLODIPine 10 MG TABLET PO SCH (09:18)
[2022-01-30] MEDS: DILTIAZEM CD 240 MG CAPSULE PO SCH (09:18)
[2022-01-30] MEDS: ISOSORBIDE MONONITRATE 60 MG TABLET PO SCH (09:18)
[2022-01-30] MEDS: SEVELAMER CARBONATE 800 MG TABLET PO SCH ×2 (09:18→11:49)
[2022-01-30] MEDS: HEPARIN 5,000 UNIT/1 ML VIAL SUBCUT SCH (09:21)
[2022-01-31] MEDS ORDERED: LEVOFLOXACIN INJ 500 MG/100 ML PREMIX IV SCH (17:00)
== END 2022-01-30 11:51 | disposition home or self-care (01) | DRG 314 ==
LOC: N.ED 15:08 → N.EDINP 17:22 → SUATTDRO 17:22 → N.3E 18:21
PROVIDERS: ADMIT Family Medicine; ATTEND Internal Medicine